=== PATIENT | male | born 1990 ===

== ENCOUNTER 2016-10-04 01:17 | Emergency (ER) | payer OTHER ==
[2016-10-04 01:32] VITALS: BP 122/58; PULSE 90; RESP 17; TEMP 98.7; O2SAT 98
--- NOTE | 2016-10-04 01:44 | ED PDOC ---
HPI: Abdomen Time Seen by Provider: 10/04/16 01:36 Chief Complaint (Nursing): Groin Pain Chief Complaint (Provider): groin pain History Per: Patient Additional Complaint(s): pt c/o L groin pain on and off x several months, worse today. no fall or injury. no fever, cp, sob, abd pain, n/v, urinary c/o, testicle pain, numbness , weakness distally. Past Medical History Reviewed: Historical Data, Nursing Documentation, Vital Signs Vital Signs: Last Vital Signs Temp 98.7 F 10/04/16 01:28 Pulse 90 10/04/16 01:28 Resp 17 10/04/16 01:28 BP 122/58 L 10/04/16 01:28 Pulse Ox 98 10/04/16 01:28 - Medical History PMH: No Chronic Diseases - Family History Family History: States: No Known Family Hx Denies: [place], CAD - Social History Current smoker - smoking cessation education provided: No Alcohol: None Drugs: Denies - Immunization History Hx Tetanus Toxoid Vaccination: No Hx Influenza Vaccination: No Hx Pneumococcal Vaccination: No - Home Medications Home Medications: Ambulatory Orders Medication Instructions Recorded Cyclobenzaprine [Flexeril] 10 mg PO BID #25 tab 07/21/16 Naproxen [Naprosyn] 500 mg PO BID #20 tab 07/21/16 Naproxen [Naprosyn] 500 mg PO BID #20 tablet 10/04/16 - Allergies Allergies/Adverse Reactions: Allergies Allergy/AdvReac Type Severity Reaction Status Date / Time No Known Allergies Allergy Unverified 07/21/16 15:06 Review of Systems ROS Statement: Except As Marked, All Systems Reviewed And Found Negative Physical Exam - Reviewed Nursing Documentation Reviewed: Yes Vital Signs Reviewed: Yes - Physical Exam Appears: Positive for: Non-toxic, Uncomfortable Skin: Positive for: Normal Color, Warm, DRY Cardiovascular/Chest: Positive for: Regular Rate, Rhythm Respiratory: Positive for: CNT, Normal Breath Sounds Gastrointestinal/Abdominal: Positive for: Normal Exam, Bowel Sounds, Soft. Negative for: Tenderness Male Genital Exam: Positive for: normal genitalia, no hernia, inguinal tenderness (left). Negative for: epididymal tenderness, hernia mass, lesions, scrotum tenderness (R), scrotum tenderness (L), testicular tenderness (R), testicular tenderness (L) Extremity: Positive for: Normal ROM. Negative for: Tenderness Neurologic/Psych: Positive for: Alert, Oriented. Negative for: Motor/Sensory Deficits - ECG O2 Sat by Pulse Oximetry: 98 Disposition - Clinical Impression Clinical Impression: Groin strain - Patient ED Disposition Is Patient to be Admitted: No - Disposition Referrals: [facility] [Outside] Disposition: Routine/Home Disposition Time: 01:53 Condition: GOOD Prescriptions: Naproxen [Naprosyn] 500 mg PO BID #20 tablet Instructions: Groin Strain (ED) Forms: [facility] ED School/Work Excuse
== END 2016-10-04 02:20 | disposition home or self-care (01) ==
LOC: H.ER 01:17
DX: R10.32 Left lower quadrant pain (principal)

== ENCOUNTER 2017-03-21 17:36 | Emergency (ER) | payer OTHER ==
[2017-03-21 17:50] VITALS: BP 121/62; PULSE 94; RESP 18; TEMP 98.8; O2SAT 97
--- NOTE | 2017-03-21 18:15 | ED PDOC ---
HPI:STROKE - Time Time: 18:05 - Historian Historian: Patient - Chief Complaint Chief Complaint: Numbness, Vision loss, other (headache) - Onset Date: 03/21/17 Time: 11:00 (11am at work) Onset: This morning - Timing Timing: Improved - Location Locate right:: Upper extremity - Severity of pain Maximum severity:: Moderate Severity Current: Moderate (headache) - Quality of Pain Quality of Pain:: Sharp - Exacerbated by Exacerbated by:: Nothing - Relieved by Relieved by:: Nothing - TPA Positive for Contraindication: Yes Reason tPA is not being Administered: symptoms ongoing >4hrs, NIHSS <4 and improvement - Notes: Notes:: 26yo male c/o posterior headache started 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 Symptoms accompanied by right arm paresthesias and right eye visual changes- described as blurry vision. Denies weakness, incoordination or change in speech. 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 He denies recent head injury, drug abuse, fever, palpitations or chest pain. He took advil prior to arrival with minimal relief. NIHSS Stroke Scale - Date/Time Evaluation Performed Date Performed: 03/21/17 Time Performed: 18:06 - How Severe is the Stroke Level of Consciousness: 0=Alert LOC to Questions: 0=Both comments correct LOC to commands: 0=Obeys both correctly Best Gaze: 0=Normal Visual: 0=No visual loss Facial: 0=Normal Motor Arm - Left: 0=No drift Motor Arm - Right: 0=No drift Motor Leg - Left: 0=No drift Motor Leg - Right: 0=No drift Limb Ataxia: 0=Absent Sensory: 0=Normal Best Language: 0=No aphasia Dysarthia: 0=Normal articulation Extinction & Inattention (Neglect): 0=Normal, no object Score: 0 rTPA Inclusion/Exclusion - Refusal of Treatment Patient Refused Treatment: No - Inclusion Criteria for Altepase Patient is 18 years or Older: Yes The Clinical Diagnosis of Ischemic Stroke That is Causing a Potentially Disabling Neurological Deficit: Yes Time of Onset is Well Established to be Less Than 270 Minute Before Treatment Would Begin: No Risk/Benefit Discussed With Patient/Family Member Present: Yes - Warning to TPA With Conditions Following Conditions Weighed Against Anticipated Benefit: Yes Condition: Stroke Serevity Too Mild, Rapid Improvement Past Medical History Reviewed: Historical Data, Nursing Documentation, Vital Signs Vital Signs: Last Vital Signs Temp 98.8 F 03/21/17 17:46 Pulse 94 H 03/21/17 17:46 Resp 18 03/21/17 17:46 BP 121/62 03/21/17 17:46 Pulse Ox 97 03/21/17 17:46 - Medical History PMH: No Chronic Diseases Other PMH: ? migrane history never formally worked up other than childhood - Surgical History Surgical History: No Surg Hx - Family History Family History: Denies: [place], CAD - Living Arrangements Living Arrangements: With Family - Social History Current smoker - smoking cessation education provided: Yes Alcohol: Occasional Drugs: Denies - Immunization History Hx Tetanus Toxoid Vaccination: No Hx Influenza Vaccination: No Hx Pneumococcal Vaccination: No - Home Medications Home Medications: Ambulatory Orders Medication Instructions Recorded Cyclobenzaprine [Flexeril] 10 mg PO BID #25 tab 07/21/16 Naproxen [Naprosyn] 500 mg PO BID #20 tab 07/21/16 Naproxen [Naprosyn] 500 mg PO BID #20 tablet 10/04/16 - Allergies Allergies/Adverse Reactions: Allergies Allergy/AdvReac Type Severity Reaction Status Date / Time No Known Allergies Allergy Unverified 07/21/16 15:06 Review of Systems ROS Statement: Except As Marked, All Systems Reviewed And Found Negative Constitutional: Negative for: Fever, Chills Eyes: Positive for: Vision Change. Negative for: Pain, Eyelid Inflammation, Redness ENT: Negative for: Ear Discharge, Nose Discharge, Throat Pain, Throat Swelling Cardiovascular: Negative for: Chest Pain, Palpitations Respiratory: Negative for: Shortness of Breath Gastrointestinal: Negative for: Nausea, Vomiting, Abdominal Pain Genitourinary Male: Negative for: Dysuria, Incontinence Musculoskeletal: Negative for: Neck Pain, Arm Pain, Back Pain, Leg Pain Skin: Negative for: Rash, Lesions, Jaundice Neurological: Positive for: Numbness, Headache. Negative for: Weakness, Incoordination, Change in Speech, Altered Mental Status, Dizziness Psych: Negative for: Anxiety, Depression Physical Exam - Reviewed Nursing Documentation Reviewed: Yes Vital Signs Reviewed: Yes - Physical Exam Appears: Positive for: Well, Non-toxic, No Acute Distress Head Exam: Positive for: ATRAUMATIC, NORMAL INSPECTION, NORMOCEPHALIC Skin: Positive for: Normal Color, Warm, DRY Eye Exam: Positive for: Normal appearance, EOMI, PERRL, Other (wears glasses, R eye soft nontender on palpation of globe w closed eye, no injection, pupils 3mm b/l, peripheral vision intact grossly) ENT: Positive for: Normal ENT Inspection Neck: Positive for: Normal, Painless ROM Cardiovascular/Chest: Positive for: Regular Rate, Rhythm Respiratory: Positive for: CNT, Normal Breath Sounds Gastrointestinal/Abdominal: Positive for: Bowel Sounds, Soft. Negative for: Tenderness, Guarding Back: Positive for: Normal Inspection Extremity: Positive for: Normal ROM Neurologic/Psych: Positive for: Alert, Oriented. Negative for: Motor/Sensory Deficits - ECG O2 Sat by Pulse Oximetry: 97 Pulse Ox Interpretation: Normal Medical Decision Making Medical Decision Making: Workup for CVA vs complex migrane initiated. CT brain, labs and EKG CT brain report reviewed Accession No. : [id number] Patient Name / ID : SENIA CELESTIN / [id number] Exam Date : 03/21/2017 18:40:21 ( Approved ) Study Comment : Sex / Age : M / 26Y Creator : SEJAL ROMERO MD Dictator : SEJAL ROMERO MD Sports Trainer : Supervisor [employer] : SEJAL ROMERO MD Approver2 : Report Date : 03/21/2017 18:50:46 My Comment : PROCEDURE: CT HEAD WITHOUT CONTRAST. HISTORY: posterior headache with R vision change x7 hrs COMPARISON: None available. TECHNIQUE: Axial computed tomography images were obtained through the head/brain without intravenous contrast. Radiation dose: Total exam DLP = 823.33 mGy-cm. This CT exam was performed using one or more of the following dose reduction techniques: Automated exposure control, adjustment of the mA and/or kV according to patient size, and/or use of iterative reconstruction technique. FINDINGS: HEMORRHAGE: No intracranial hemorrhage. BRAIN: Son-white matter differentiation is preserved. There is no mass, mass effect or abnormal extra-axial fluid collection. VENTRICLES: The ventricles are normal in size, shape and configuration. CALVARIUM: The skull base and calvarium are normal. PARANASAL SINUSES: Predominantly clear. MASTOID AIR CELLS: Predominantly clear. OTHER FINDINGS: None. IMPRESSION: No acute intracranial abnormality. If there is a persistent focal neurologic deficit and an ongoing clinical concern for acute infarction, an MRI of the brain without intravenous contrast would be a more sensitive modality for evaluation of hyperacute/acute ischemic infarction. Discussed w neurology endodontics dentist Dr Gonzales, recommends initiating depakote 500mg, decadron and Mag Sulfate 2gm. Also rec ASA 81mg, admit for full workup. Endorse Dr Busch 710pm pending labs and admit. Disposition - Clinical Impression Clinical Impression: Acute headache, Vision disturbance - Patient ED Disposition Is Patient to be Admitted: No Counseled Patient/Family Regarding: Studies Performed - Disposition Disposition: Transfer of Care Disposition Time: 19:07 Condition: STABLE Instructions: Acute Headache (ED) Forms: [employer] (Micronesian) Patient Signed Over To: Avery Busch Handoff Comments: pending labs, likely obs tele
--- NOTE | 2017-03-21 18:52 | CT ---
PROCEDURE: CT HEAD WITHOUT CONTRAST. HISTORY: posterior headache with R vision change x7 hrs COMPARISON: None available. TECHNIQUE: Axial computed tomography images were obtained through the head/brain without intravenous contrast. Radiation dose: Total exam DLP = 823.33 mGy-cm. This CT exam was performed using one or more of the following dose reduction techniques: Automated exposure control, adjustment of the mA and/or kV according to patient size, and/or use of iterative reconstruction technique. FINDINGS: HEMORRHAGE: No intracranial hemorrhage. BRAIN: Son-white matter differentiation is preserved. There is no mass, mass effect or abnormal extra-axial fluid collection. VENTRICLES: The ventricles are normal in size, shape and configuration. CALVARIUM: The skull base and calvarium are normal. PARANASAL SINUSES: Predominantly clear. MASTOID AIR CELLS: Predominantly clear. OTHER FINDINGS: None. IMPRESSION: No acute intracranial abnormality. If there is a persistent focal neurologic deficit and an ongoing clinical concern for acute infarction, an MRI of the brain without intravenous contrast would be a more sensitive modality for evaluation of hyperacute/acute ischemic infarction.
[2017-03-21 19:01] LABS: BASO # 0.1 K/uL (0.0-0.2); BASO % 0.6 % (0.0-2.0); EOS # 0.1 K/uL (0.0-0.7); EOS % 0.6 % (0.0-4.0); HEMATOCRIT 38.3 % (35.0-51.0); LYMPH # 2.2 K/uL (1.0-4.3); LYMPH % 26.2 % (20.0-40.0); MEAN CELL VOLUME 86.1 fl (80.0-94.0); MEAN CORPUSCULAR HEMOGLOBIN 28.6 pg (27.0-31.0); MEAN CORPUSCULAR HGB CONC 33.3 g/dL (33.0-37.0); MEAN PLATELET VOLUME 8.5 fl (7.2-11.7); MONO # 0.4 K/uL (0.0-0.8); MONO % 4.7 % (0.0-10.0); NEUT # 5.8 K/uL (1.8-7.0); NEUT % 67.9 % (50.0-75.0); RED CELL DISTRIBUTION WIDTH 13.1 % (11.5-14.5); WHITE BLOOD COUNT 8.6 K/uL (4.8-10.8)
[2017-03-21] MEDS ORDERED: Magnesium Sulfate 2 gm/50 ml 2 GM/50 ML BAG IVPB ONE (19:02)
[2017-03-21] MEDS ORDERED: Valproate 500 MG in Sodium Chloride 0.9% 100 ML IVPB ONE (19:02)
[2017-03-21] MEDS ORDERED: Valproate Sodium 500 mg Inj ONE (19:09)
[2017-03-21] MEDS ORDERED: Magnesium Sulfate 2 gm/50 ml 2 GM/50 ML BAG ONE (19:10)
[2017-03-21 19:11] LABS: ALB/GLOB RATIO 1.6 (1.0-2.1); ALKALINE PHOSPHATASE 86 U/L (38-126); ALT/SGPT 27 U/L (21-72); AST/SGOT 22 U/L (17-59); BILIRUBIN,TOTAL 0.8 mg/dl (0.2-1.3); BLOOD UREA NITROGEN 10 mg/dl (9-20); CALCIUM 9.2 mg/dL (8.4-10.2); CARBON DIOXIDE 25 mmol/L (22-30); CHLORIDE 104 mmol/L (98-107); CHOLESTEROL 179 mg/dL (0-199); GFR AFRICAN-AMERICAN > 60; GLUCOSE,RANDOM 89 mg/dL (75-110); SODIUM 144 mmol/l (132-148); TOTAL PROTEIN 7.5 G/DL (6.3-8.2)
[2017-03-21 19:31] LABS: PARTIAL THROMBOPLASTIN TIME 32.4 Seconds (25.6-37.1)
--- NOTE | 2017-03-21 19:39 | ED PDOC ---
- Laboratory Results Result Diagrams: 03/21/17 18:56 03/21/17 18:56 - ECG O2 Sat by Pulse Oximetry: 97 Medical Decision Making Medical Decision Making: Receiving Sign Out: Patient signed out to me by Dr. Armstrong pending labs and admission. Scribe Attestation: Documented by Vani Nicole, acting as a scribe for Avery Busch MD. Provider Scribe Attestation: All medical record entries made by the Scribe were at my direction and personally dictated by me. I have reviewed the chart and agree that the record accurately reflects my personal performance of the history, physical exam, medical decision making, and the department course for this patient. I have also personally directed, reviewed, and agree with the discharge instructions and disposition. Disposition Counseled Patient/Family Regarding: Studies Performed, Diagnosis - Clinical Impression Clinical Impression: Acute headache, Vision disturbance, Left against medical advice - POA Present On Arrival: None - Disposition Referrals: [facility] [Outside] Maverick Farnsworth MD [Staff Provider] - Disposition: Routine/Home Disposition Time: 20:00 Condition: STABLE Additional Instructions: follow up with neurologist as soon as possible return to the ED immediately if you would like to continue the workup or with any worsening or concerning symptoms Instructions: Acute Headache (ED), Against Medical Advice (ED) Forms: [employer] (Welsh) Progress Note - Review of Symptoms Events since last encounter: 2019 Labs reviewed and indicate elevated triglycerides, otherwise within normal limits. Findings discussed with patient and informed of admission plan. Pt refuses admission and states he has to go to work tomorrow. Informed patient about the risks of signing out AMA and he expresses understanding, still wishes to sign out AMA. Patient given outpatient neurologist follow up and informed to return to ED if symptoms worsen or new symptoms arise. Against Medical Advice - AMA Patient Left Against Medical Advice: The patient declines admission to the hospital and wishes to leave the Emergency Department. This action is against my medical advice. This decision was made with informed refusal. The patient was told that admission to the hospital is necessary. Explanation of the reasons why were discussed. The risks of leaving were explained to the patient and include, but are not limited to, worsening of known or currently unknown conditions, permanent disability and from undiagnosed or untreated conditions. The patient has the capacity to make this informed decision and understands my explanation of the current medical problem and risks of leaving. The patient voluntarily accepts these risks and signed an AMA form documenting our conversation. The patient was given the opportunity to ask questions and reconsider. The patient was encouraged to return to the Emergency Department at any time for further care.
--- NOTE | 2017-03-22 09:29 | RAD ---
PROCEDURE: CHEST RADIOGRAPH, 1 VIEW HISTORY: headache COMPARISON: None available. FINDINGS: LUNGS: Clear. PLEURA: No pneumothorax or pleural fluid seen. CARDIOVASCULAR: Normal. OSSEOUS STRUCTURES: No significant abnormalities. VISUALIZED UPPER ABDOMEN: Normal. OTHER FINDINGS: None. IMPRESSION: No acute cardiopulmonary disease appreciated.
--- NOTE | 2017-03-23 11:13 | CARD ---
APPROVED REPORT EKG Measurement Heart [id number] <Conclusion> Normal sinus rhythm Normal ECG
== END 2017-03-21 20:45 | disposition left against medical advice (07) ==
LOC: H.ER 17:36
DX: R51 Headache (principal); H53.9 Unspecified visual disturbance

== ENCOUNTER 2018-01-11 00:25 | Emergency (ER) | payer OTHER ==
[2018-01-11 00:43] VITALS: BP 110/67; PULSE 88; RESP 18; TEMP 98.8; O2SAT 97
--- NOTE | 2018-01-11 01:37 | ED PDOC ---
HPI: CCC, URI, Sore Throat Time Seen by Provider: 01/11/18 01:25 Chief Complaint (Nursing): ENT Problem Chief Complaint (Provider): cough, sore throat History Per: Patient History/Exam Limitations: no limitations Onset/Duration Of Symptoms: Days (3) Current Symptoms Are (Timing): Still Present Location Of Pain: Throat Associated Symptoms: Sore Throat, Cough, Sputum, Nasal Congestion Additional Complaint(s): 27 y/o male presents for evaluation of cold symptoms x 3 days. Patient reports nasal congestion, dry cough (which is worse at night), and throat pain. Denies fever, chest pain, shortness of breath, palpitations, nausea/vomiting, abdominal pain, recent travel, sick contacts. Past Medical History Reviewed: Historical Data, Nursing Documentation, Vital Signs Vital Signs: Last Vital Signs Temp 98.8 F 01/11/18 00:41 Pulse 88 01/11/18 00:41 Resp 18 01/11/18 00:41 BP 110/67 01/11/18 00:41 Pulse Ox 97 01/11/18 01:37 - Medical History PMH: No Chronic Diseases - Surgical History Surgical History: No Surg Hx - Family History Family History: States: No Known Family Hx Denies: [place], CAD - Social History Current smoker - smoking cessation education provided: Yes Alcohol: None Drugs: Denies - Immunization History Hx Tetanus Toxoid Vaccination: No Hx Influenza Vaccination: No Hx Pneumococcal Vaccination: No - Home Medications Home Medications: Ambulatory Orders Medication Instructions Recorded Cyclobenzaprine [Flexeril] 10 mg PO BID #25 tab 07/21/16 Naproxen [Naprosyn] 500 mg PO BID #20 tab 07/21/16 Naproxen [Naprosyn] 500 mg PO BID #20 tablet 10/04/16 Ibuprofen [Motrin] 600 mg PO Q6 #20 tab 04/18/17 Fluticasone Nasal [Flonase] 1 actuation NS BID #1 bottle 01/11/18 Ibuprofen [Motrin Tab] 1 tab PO Q6 PRN #15 tab 01/11/18 guaiFENesin/Dextromethorphan 1 - 2 tab PO Q12 PRN #20 tab 01/11/18 [guaiFENesin/DM 600-30 mg] - Allergies Allergies/Adverse Reactions: Allergies Allergy/AdvReac Type Severity Reaction Status Date / Time No Known Allergies Allergy Verified 01/11/18 00:40 Review of Systems ROS Statement: Except As Marked, All Systems Reviewed And Found Negative ENT: Positive for: Nose Congestion, Throat Pain Respiratory: Positive for: Cough Physical Exam - Reviewed Nursing Documentation Reviewed: Yes Vital Signs Reviewed: Yes - Physical Exam Appears: Positive for: Well, Non-toxic, No Acute Distress Head Exam: Positive for: ATRAUMATIC, NORMAL INSPECTION, NORMOCEPHALIC Skin: Positive for: Normal Color Eye Exam: Positive for: Normal appearance ENT: Positive for: TM Is/Are (clear b/l), Nasal Congestion, Pharyngeal Erythema. Negative for: Tonsillar Exudate, Tonsillar Swelling Cardiovascular/Chest: Positive for: Regular Rate, Rhythm Respiratory: Positive for: Normal Breath Sounds Gastrointestinal/Abdominal: Positive for: Normal Exam Back: Positive for: Normal Inspection Extremity: Positive for: Normal ROM Neurologic/Psych: Positive for: Alert, Oriented (x3) - ECG O2 Sat by Pulse Oximetry: 97 - Progress ED Course And Treament: rapid strep, ibuprofen PO Patient educated on findings, discharged with rx Flonase, ibuprofen, mucinex DM Advised fluids, rest Follow up PMD 2-3 days. Return precautions given Disposition - Clinical Impression Clinical Impression: URI (upper respiratory infection) - Patient ED Disposition Is Patient to be Admitted: No Counseled Patient/Family Regarding: Studies Performed, Diagnosis, Need For Followup, Rx Given - Disposition Referrals: Yolanda Poole MD [Primary Care Provider] - Disposition: Routine/Home Disposition Time: 02:43 Condition: IMPROVED Prescriptions: Fluticasone Nasal [Flonase] 1 actuation NS BID #1 bottle guaiFENesin/Dextromethorphan [guaiFENesin/DM 600-30 mg] 1 - 2 tab PO Q12 PRN # 20 tab PRN Reason: cough and congestion Ibuprofen [Motrin Tab] 1 tab PO Q6 PRN #15 tab PRN Reason: Pain, Moderate (4-7) Instructions: Viral Upper Respiratory Infection, Adult (DC) Forms: [employer] (Greenlandic)
== END 2018-01-11 03:30 | disposition home or self-care (01) ==
LOC: H.ER 00:25
DX: J06.9 Acute upper respiratory infection, unspecified (principal); F17.200 Nicotine dependence, unspecified, uncomplicated